=== PATIENT | male | born 1985 | race African-American/Black ===

== ENCOUNTER 2017-01-26 12:45 | Emergency (ER) | payer SELFPAY ==
[~2017-01-26] VITALS: Ht 172.7 cm; Wt 68.0 kg
[2017-01-26 12:57] VITALS: BP 126/81
[2017-01-26] MEDS ORDERED: ELVI1TAB3 PO (13:01)
== END 2017-01-26 18:11 | disposition home or self-care (01) ==
LOC: ER 16:22
DX: T14.8 Other injury of unspecified body region (principal); Z20.6 Contact with and (suspected) exposure to human immunodeficiency virus [HIV]; W57.XXXA Bitten or stung by nonvenomous insect and other nonvenomous arthropods, initial encounter; Y92.59 Other trade areas as the place of occurrence of the external cause
CPT/HCPCS: 99282